=== PATIENT | male | born 1935 | race Caucasian/White ===

== ENCOUNTER 2016-08-17 12:30 | Observation (INO) | payer BC ==
[2016-08-14 17:22] LABS: BASOPHILS 0.3 %; BASOPHILS ABSOLUTE 0.03 10/3/uL (0.0-0.16); EOSINOPHILS 1.2 %; EOSINOPHILS ABSOLUTE 0.11 10/3/uL (0.0-0.53); HEMATOCRIT 43.5 % (40.0-51.0); HEMOGLOBIN 14.3 g/dL (13.6-17.8); IMMATURE GRANULOCYTES 0.2 %; IMMATURE GRANULOCYTES ABSOLUTE 0.02 10/3/uL (0.0-0.11); LYMPHOCYTES 23.2 %; LYMPHOCYTES ABSOLUTE 2.11 10/3/uL (0.67-4.30); MEAN CORPUSCULAR HEMOGLOB 28.2 pg (26.0-34.0); MEAN CORPUSCULAR VOLUME 85.8 fL (80-100); MEAN PLATELET VOLUME 10.7 fL (9.2-13.0); MONOCYTES 8.6 %; MONOCYTES ABSOLUTE 0.78 10/3/uL (0.21-1.20); NEUTROPHILS 66.5 %; NEUTROPHILS ABSOLUTE 6.03 10/3/uL (2.02-8.40); RBC DISTRIBUTION WIDTH 14.2 % (12.0-16.0); WHITE BLOOD CELLS 9.1 10/3/uL (4.5-10.5)
[2016-08-14 17:32] LABS: MANUAL DIFF NO %; MEAN CORPUS HGB CONC 32.9 g/dL (32.0-36.0); PLATELET COUNT 161 10/3/uL (150-400); RED CELL COUNT 5.07 10/6/uL (4.7-6.1)
[2016-08-14 17:38] LABS: A/G RATIO 1.1 (0.7-1.9); ALBUMIN 3.8 G/DL (3.5-5.0); ALKALINE PHOSPHATASE 102 U/L (45-117); CHLORIDE, SERUM 101 MMOL/L (96-112); CO2 (CARBON DIOXIDE) 29 MMOL/L (24-34); CREATININE 1.32 MG/DL (0.70-1.30); GFR AFRICAN AMERICAN 59 ML/MIN (>=60); GFR NON AFRICAN AMERICAN 51 ML/MIN (>=60); GLOBULIN 3.4 G/DL (2.5-4.1); GLUCOSE, SERUM 123 MG/DL (60-99); POTASSIUM, SERUM 4.1 MMOL/L (3.5-5.3); SGOT(AST) 16 U/L (5-40); SGPT(ALT) 23 U/L (5-65); SODIUM, SERUM 136 MMOL/L (135-148); TOTAL BILIRUBIN 0.5 MG/DL (0-1.2); TOTAL PROTEIN 7.2 G/DL (6.0-8.5)
[2016-08-14 17:39] LABS: BUN (BLOOD UREA NITROGEN) 26 MG/DL (6-23)
[2016-08-14 17:42] LABS: INTERNATIONAL NORMAL RATI 1.1 UNITS (-); PROTIME (NOT ORD) 13.9 SEC (12.0-14.5)
[2016-08-14 17:43] LABS: PARTIAL THROMBO TIME 30.3 SEC (22.5-37.2)
--- NOTE | ~2016-08-17 | HP ---
History And Physical [address] [place]. [address] NAME: JARED CARSON : 39 STATUS : ADM IN [facility]#: [id number] AGE: 80 ADM/REG DATE : 08/17/16 MR#: [id number] REPORT SERV DATE: 08/17/16 DICTATED BY: RIAN CRUZ III DATE: 08/17/16 REPORT STATUS : Draft TRANSCRIBED BY: MODCielo DATE: 08/17/16 DATE OF ADMISSION: 08/17/2016 23-HOUR OBSERVATION HISTORY AND PHYSICAL CHIEF COMPLAINT: Left hip pain. HISTORY: The patient is a 80-year-old white male, who presented on 08/03/2016 with left hip pain that has been going on for two months. He had seen Dr. Arley Varela, who ordered a bone scan which suggested a stress fracture of his left femoral neck. I have ordered a MRI which confirmed a stress fracture of his left femoral neck. He is very symptomatic and he is admitted for pinning of his left hip. PAST MEDICAL HISTORY: Medically significant for heart trouble, shortness of breath. Otherwise, he denies any diabetes, liver, lung, or kidney problems other than requiring catheterization. PAST SURGICAL HISTORY: Previous surgeries include colorectal cancer; five artery bypass surgery, 2013; three hernia repairs; two back surgeries; skin cancer on his forehead. ALLERGIES: MERCUROCHROME. SOCIAL HISTORY: Nonsmoker, nondrinker. PHYSICAL EXAMINATION: GENERAL: He is alert and oriented x3. VITAL SIGNS: Stable. HEENT: Normocephalic, atraumatic. Pupils equal, round, and reactive to light and accommodation. Extraocular muscles are intact. NECK: Supple. CHEST: Clear. HEART: Regular rhythm. ABDOMEN: Benign. Soft, nontender. Positive bowel sounds. ORTHOPEDIC: Examination reveals marked tenderness to his left hip. He has tender to left groin. He has flexion to 90 degrees, internal rotation 20, external rotation 30, abduction 30, adduction 20, and painful. IMAGING: X-rays are normal. MRI and bone scan reveal stress fracture of the left femoral neck, compression side. PLAN: Pinning of his left hip. TB/SUKHJINDER History And Physical [address] [place]. [address] NAME: JARED CARSON : 39 STATUS : ADM IN PAT#: [id number] AGE: 80 ADM/REG DATE : 08/17/16 MR#: [id number] REPORT SERV DATE: 08/17/16 DICTATED BY: RIAN CRUZ III DATE: 08/17/16 REPORT STATUS : Draft TRANSCRIBED BY: MODL DATE: 08/17/16 Rian Curz III, M.D. / [id number] CC: Kike Coleman III, Nathan Marty Scheinberg, M.D.
--- NOTE | ~2016-08-17 | OP ---
Record Of Operation [facility] [address] [place]. [address] NAME: JARED CARSON : 39 STATUS : ADM IN PAT#: [id number] AGE: 80 ADM/REG DATE : 08/17/16 MR#: [id number] REPORT SERV DATE: 08/17/16 DICTATED BY: RIAN CRUZ III DATE: 08/17/16 REPORT STATUS : Draft TRANSCRIBED BY: MODL DATE: 08/17/16 DATE OF PROCEDURE: 08/17/2016 PREOPERATIVE DIAGNOSIS: Left femoral neck stress fracture. POSTOPERATIVE DIAGNOSIS: Left femoral neck stress fracture. PROCEDURE PERFORMED: Pinning of left femoral neck fracture using the Synthes 7.3 cannulated screws x3. BAREBACK RIDER: Rian Price. ANESTHESIA: General. ANTIBIOTICS: Ancef 2 g. COMPLICATIONS: None. CRYSTALLOID: 400 mL. ESTIMATED BLOOD LOSS: 30 mL. DRAINS: None. COMPLICATIONS: None. PROCEDURE IN DETAIL: The patient was brought to the operative room, where general anesthesia was induced on the hospital bed. He was positioned on the fracture table with general longitudinal traction applied to left lower extremity. The perineal post in proper position. The right leg in a Well leg cano and upper extremities well padded. Left hip, upper thigh, and femur were entirely prepped and draped in the usual sterile fashion. 2 g Ancef was administered intravenously in the operating room. After surgical time-out, a small incision was made below the greater trochanter for approximately two inches. The iliotibial band was incised. Dissection was carried down to the lateral cortex of the femur. Three cannulated pins were placed up the femoral neck and head with the use of C-arm image. One measured 110 mm, one measured 105, and one measured 100. The cortex was overreamed with a cannulated Synthes reamer and three 7.3 cannulated screws were placed across the femoral neck and head. C-arm image with the pins were removed with power and C- arm image was used to confirm good placement of the Synthes screws x3 in both the AP and lateral planes. Thorough irrigation was carried out. The iliotibial band was repaired with interrupted [id number] #1 Vicryl suture, subcutaneous tissue was closed 2-0 Vicryl, and the skin was closed using ralph. 30 mL of 0.5% Marcaine solution was injected into the wound for postoperative pain control. Sterile Aquacel dressing was applied. The patient tolerated the procedure well and brought to recovery room in satisfactory condition. Record Of Operation [address] [place]. [address] NAME: JARED CARSON : 39 STATUS : ADM IN [facility]#: [id number] AGE: 80 ADM/REG DATE : 08/17/16 MR#: [id number] REPORT SERV DATE: 08/17/16 DICTATED BY: RIAN CRUZ III DATE: 08/17/16 REPORT STATUS : Draft TRANSCRIBED BY: SUKHJINDER DATE: 08/17/16 TB/SUKHJINDER Rian Cruz III, M.D. / [id number] CC: Kike Coleman III, NATHAN
[~2016-08-17 12:30] MED LIST: ASAB PO; ASABAYER PO; CAT1 PO; CELEXA20 PO; COZ50 PO; DURA100 TOP; FLOMAX4 PO; LEVAQUIN750 MG PO; LEXAPRO20 PO; LOP25 PO; LORT7 PO; LORTAB10 PO; MIRALAX POWDER1 PKT PO; MIRALAXPKT PO; MSCONT60 PO; NORCO1 TAB PO; NORV25 PO; PRILO PO; VITAMIN D31000 UNIT PO
[2016-08-18 05:42] LABS: HEMOGLOBIN 12.9 g/dL (13.6-17.8)
[2016-08-18 05:45] LABS: HEMATOCRIT 38.5 % (40.0-51.0)
== END 2016-08-18 16:08 | disposition home or self-care (01) ==
LOC: SDC/OF 12:30 → PACU 15:03 → 1SO 15:56
PROVIDERS: Orthopaedic Surgery
PROC: 0QH Lower Bones, Insertion (ICD-10-PCS; principal; 2016-08-17 13:45)
DX: M84.359A Stress fracture, hip, unspecified, initial encounter for fracture (principal); I25.10 Atherosclerotic heart disease of native coronary artery without angina pectoris; I10 Essential (primary) hypertension; K21.9 Gastro-esophageal reflux disease without esophagitis; Z95.5 Presence of coronary angioplasty implant and graft; Z87.891 Personal history of nicotine dependence; Z98.890 Other specified postprocedural states; Z88.5 Allergy status to narcotic agent
CPT/HCPCS: 76000; 80053; 85014; 85018; 85025; 85610; 85730; 93005; 96374; 96375; 96376; 97161-GP; 97165-GO; A9270-GY; C1713; C1769; G0378; J0330; J0690; J1170; J1885; J2270; J2405; J3010